=== PATIENT | male | born 1955 | race Caucasian/White ===

== ENCOUNTER 2018-01-28 10:44 | Outpatient (REF) | payer BC, SELFPAY ==
[2018-01-28 21:49] LABS: ALT 27 U/L (12-78); AST 19 U/L (15-37); Albumin 3.8 g/dL (3.4-5.0); Alkaline Phosphatase 81 U/L (46-116); Anion Gap 9.4 mmol/L (3-11); BUN 21 mg/dL (7-18); Bilirubin, Total 0.1 mg/dL (0.2-1.0); CO2 26.6 mmol/L (21.0-32.0); CREATININE 1.16 mg/dL (0.70-1.30); Calcium 9.6 mg/dL (8.5-10.1); Chloride 103 mmol/L (98-107); Glucose 133 mg/dL (70-100); Potassium 5.6 mmol/L (3.5-5.1); Sodium 139 mmol/L (136-145)
[2018-01-28 22:04] LABS: COMMENT (LAB VIEW ONLY) 63.96 mg/dL; Microalb ug/mg Crea 80.4 ug/mg Cr
[2018-01-30 10:47] LABS: Hepatitis C Ab w Rflx HCV PCR Negative (NEGAT)
== END 2018-01-28 11:04 ==
LOC: NCHCN 10:44
PROVIDERS: Visit Provider Nurse Practitioner Family
DX: E11.319 Type 2 diabetes mellitus with unspecified diabetic retinopathy without macular edema (principal); E78.5 Hyperlipidemia, unspecified; I10 Essential (primary) hypertension; F17.200 Nicotine dependence, unspecified, uncomplicated; Z11.59 Encounter for screening for other viral diseases
CPT/HCPCS: 80053; 86803; 82043; 82570

== ENCOUNTER 2018-02-04 08:55 | Outpatient (REF) | payer BC, SELFPAY ==
[2018-02-04 22:02] LABS: Anion Gap 9.4 mmol/L (3-11); BUN 27 mg/dL (7-18); CO2 26.6 mmol/L (21.0-32.0); CREATININE 1.38 mg/dL (0.70-1.30); Calcium 9.5 mg/dL (8.5-10.1); Chloride 103 mmol/L (98-107); Estimated GFR 52.56 (mL/min/1.73m2); Glucose 190 mg/dL (70-100); Potassium 4.6 mmol/L (3.5-5.1); Sodium 139 mmol/L (136-145)
== END 2018-02-04 09:15 ==
LOC: LBN 08:55
PROVIDERS: Nurse Practitioner Family; Visit Provider Family Medicine
DX: I10 Essential (primary) hypertension (principal)
CPT/HCPCS: 80048

== ENCOUNTER 2018-03-11 09:01 | Outpatient (REF) | payer BC, SELFPAY ==
[2018-03-11 22:16] LABS: Anion Gap 8.7 mmol/L (3-11); BUN 23 mg/dL (7-18); CO2 27.3 mmol/L (21.0-32.0); CREATININE 1.46 mg/dL (0.70-1.30); Calcium 9.5 mg/dL (8.5-10.1); Chloride 105 mmol/L (98-107); Cholesterol 136 mg/dL (50-200); Estimated GFR 49.25 (mL/min/1.73m2); Glucose 171 mg/dL (70-100); HDL Cholesterol 40 mg/dL (40-60); LDL CHOLESTEROL 73 mg/dL (<100); Potassium 5.1 mmol/L (3.5-5.1); Sodium 141 mmol/L (136-145); Triglyceride 142 mg/dL (30-150)
== END 2018-03-11 09:21 ==
LOC: NCHCN 09:01
PROVIDERS: Visit Provider Nurse Practitioner Family
DX: I10 Essential (primary) hypertension (principal); E11.319 Type 2 diabetes mellitus with unspecified diabetic retinopathy without macular edema; E78.5 Hyperlipidemia, unspecified
CPT/HCPCS: 80048; 80061; 83721

== ENCOUNTER 2018-04-29 08:34 | Outpatient (REF) | payer BC, SELFPAY ==
[2018-04-29 22:23] LABS: Anion Gap 7.6 mmol/L (3-11); BUN 27 mg/dL (7-18); CO2 28.4 mmol/L (21.0-32.0); CREATININE 1.64 mg/dL (0.70-1.30); Calcium 9.5 mg/dL (8.5-10.1); Chloride 103 mmol/L (98-107); Estimated GFR 43.07 (mL/min/1.73m2); Glucose 197 mg/dL (70-100); Potassium 4.7 mmol/L (3.5-5.1); Sodium 139 mmol/L (136-145); TSH (W/Ref FT4) 1.46 uIU/mL (0.358-3.74)
== END 2018-04-29 08:54 ==
LOC: LBN 08:34
PROVIDERS: Visit Provider Nurse Practitioner Family
DX: R68.89 Other general symptoms and signs (principal); R94.4 Abnormal results of kidney function studies; E11.319 Type 2 diabetes mellitus with unspecified diabetic retinopathy without macular edema; I10 Essential (primary) hypertension
CPT/HCPCS: 80048; 84443

== ENCOUNTER 2018-05-15 08:34 | Outpatient (REF) | payer BC, SELFPAY ==
[2018-05-15 21:27] LABS: BUN 28 mg/dL (7-18); CREATININE 1.47 mg/dL (0.70-1.30); Calcium 9.5 mg/dL (8.5-10.1); Chloride 103 mmol/L (98-107); Estimated GFR 48.86 (mL/min/1.73m2); Glucose 285 mg/dL (70-100); Potassium 5.2 mmol/L (3.5-5.1); Sodium 137 mmol/L (136-145)
== END 2018-05-15 08:54 ==
LOC: NCHCN 08:34
PROVIDERS: PCP Nurse Practitioner Family; Visit Provider Nurse Practitioner Family
DX: R94.4 Abnormal results of kidney function studies (principal)
CPT/HCPCS: 80048

== ENCOUNTER 2019-01-14 08:59 | Outpatient (REF) | payer BC, SELFPAY ==
[2019-01-14 21:18] LABS: COMMENT (LAB VIEW ONLY) 69.26 mg/dL; Microalb ug/mg Crea 53.6 ug/mg Cr
[2019-01-14 21:38] LABS: HCT 38.4 % (40.0-50.0); HGB 12.7 g/dL (13.5-17.5); Mean Corp. HGB Concentration 33.1 g/dL (32.0-36.0); Mean Corpuscular Hemoglobin 32.2 pg (27.0-33.0); Mean Corpuscular Volume 97.5 fL (80-95); Mean Platelet Volume 10.5 fL (8.0-11.0); Platelet Count 303 x1000/uL (130-400); RBC 3.94 m/cumm (4.50-6.00); RBC Distribution Width 12.4 % (11.8-14.1); White Blood Cell Count 9.05 k/cumm (4.4-10.8)
[2019-01-14 22:09] LABS: Vitamin D 25 Total 46.8 ng/ml (30-100)
[2019-01-14 22:32] LABS: ALT 30 U/L (16-63); AST 20 U/L (15-37); Albumin 4.3 g/dL (3.4-5.0); Alkaline Phosphatase 83 U/L (46-116); Anion Gap 9.5 mmol/L (3-11); BUN 21 mg/dL (7-18); Bilirubin, Total 0.4 mg/dL (0.2-1.0); CO2 26.5 mmol/L (21.0-32.0); CREATININE 1.53 mg/dL (0.70-1.30); Calcium 10.2 mg/dL (8.5-10.1); Chloride 104 mmol/L (98-107); Glucose 151 mg/dL (70-100); Sodium 140 mmol/L (136-145); TSH 1.27 uIU/mL (0.36-3.74); Total Protein 7.7 g/dL (6.4-8.2); Vitamin B12 305 pg/mL (193-986)
[2019-01-14 22:38] LABS: Potassium 6.1 mmol/L (3.5-5.1)
== END 2019-01-14 09:19 ==
LOC: NCHCN 08:59
PROVIDERS: PCP Nurse Practitioner Family; Visit Provider Family Medicine
DX: Z00.00 Encounter for general adult medical examination without abnormal findings (principal); E78.5 Hyperlipidemia, unspecified; E11.319 Type 2 diabetes mellitus with unspecified diabetic retinopathy without macular edema; R53.83 Other fatigue; N18.3 Chronic kidney disease, stage 3 (moderate)
CPT/HCPCS: 80053; 82306; 85027; 82043; 82570; 82607; 84443

== ENCOUNTER 2019-01-27 09:23 | Outpatient (REF) | payer BC, SELFPAY ==
[2019-01-27 17:03] LABS: Anion Gap 7.1 mmol/L (3-11); BUN 20 mg/dL (7-18); CO2 28.9 mmol/L (21.0-32.0); CREATININE 1.46 mg/dL (0.70-1.30); Calcium 9.4 mg/dL (8.5-10.1); Chloride 104 mmol/L (98-107); Estimated GFR 49.09 (mL/min/1.73m2); Glucose 155 mg/dL (74-106); Sodium 140 mmol/L (136-145)
== END 2019-01-27 09:43 ==
LOC: NCHCN 09:23
PROVIDERS: PCP Nurse Practitioner Family; Visit Provider Family Medicine
DX: E87.5 Hyperkalemia (principal); I10 Essential (primary) hypertension
CPT/HCPCS: 80048

== ENCOUNTER 2020-01-25 09:26 | Outpatient (REF) | payer OTHER, SELFPAY ==
[2020-01-25 21:50] LABS: HCT 38.3 % (40.0-50.0); HGB 12.9 g/dL (13.5-17.5); MCH 32.1 pg (27.0-33.0); MCHC 33.7 % (32.0-36.0); MCV 95.3 fL (80-95); MPV 9.7 fL (8.0-11.0); Platelet Count 289 10^3/uL (130-400); RBC 4.02 10^6/uL (4.36-5.78); RDW 11.9 % (11.8-14.1); RDW-SD 41.3 fL; WBC 6.92 10^3/uL (4.4-10.8)
[2020-01-25 22:44] LABS: ALT 21 U/L (16-63); AST 16 U/L (15-37); Alkaline Phosphatase 80 U/L (46-116); Anion Gap 6.4 mmol/L (3-11); BUN 21 mg/dL (7-18); Bilirubin, Total 0.4 mg/dL (0.2-1.0); CO2 26.6 mmol/L (21.0-32.0); CREATININE 1.48 mg/dL (0.70-1.30); Calcium 9.2 mg/dL (8.5-10.1); Chloride 102 mmol/L (98-107); Estimated GFR 48.16 (mL/min/1.73m2); Glucose 191 mg/dL (74-106); Potassium 4.6 mmol/L (3.5-5.1); Sodium 135 mmol/L (136-145); Total Protein 7.1 g/dL (6.4-8.2)
== END 2020-01-25 09:46 ==
LOC: NCHCN 09:26
PROVIDERS: PCP Nurse Practitioner Family; Visit Provider Nurse Practitioner Family
DX: Z00.00 Encounter for general adult medical examination without abnormal findings (principal); N18.30 Chronic kidney disease, stage 3 unspecified; E11.319 Type 2 diabetes mellitus with unspecified diabetic retinopathy without macular edema
CPT/HCPCS: 80053; 85027

== ENCOUNTER 2020-04-24 14:28 | Outpatient (REF) | payer OTHER, SELFPAY ==
[2020-04-24 13:19] LABS: Abs Immature Grans 0.04 10^3/uL (0.0-0.06); Absolute Basophil Count 0.04 10^3/uL (0.0-0.2); Absolute Eosinophil Count 0.18 10^3/uL (0.0-0.7); Absolute Lymphocyte Count 2.04 10^3/uL (1.2-3.4); Absolute Monocyte Count 0.81 10^3/uL (0.1-0.8); Absolute Neutrophil Count 8.88 10^3/uL (1.2-6.7); Basophils % 0.3; Eosinophils % 1.5; HCT 36.7 % (40.0-50.0); HGB 12.6 g/dL (13.5-17.5); Immature Grans % 0.3; MCH 32.6 pg (27.0-33.0); MCHC 34.3 % (32.0-36.0); MCV 94.8 fL (80-95); MPV 10.2 fL (8.0-11.0); Monocytes % 6.8; Neutrophils % 74.1; Nucleated RBC 0 %; Platelet Count 276 10^3/uL (130-400); RBC 3.87 10^6/uL (4.36-5.78); RDW 11.9 % (11.8-14.1); RDW-SD 41.5 fL; WBC 11.98 10^3/uL (4.4-10.8)
[2020-04-24 13:58] LABS: ALT 21 U/L (16-63); AST 17 U/L (15-37); Albumin 3.9 g/dL (3.4-5.0); Alkaline Phosphatase 91 U/L (46-116); Anion Gap 11.7 mmol/L (3-11); BUN 28 mg/dL (7-18); Bilirubin, Total 0.3 mg/dL (0.2-1.0); CO2 24.3 mmol/L (21.0-32.0); CREATININE 1.5 mg/dL (0.70-1.30); Calcium 9.5 mg/dL (8.5-10.1); Calculated LDL 63 mg/dL (<100); Chloride 101 mmol/L (98-107); Cholesterol 122 mg/dL (<200); Estimated GFR 47.42 (mL/min/1.73m2); Glucose 233 mg/dL (74-106); HDL Cholesterol 47 mg/dL (40-60); Potassium 5.2 mmol/L (3.5-5.1); Sodium 137 mmol/L (136-145); Total Protein 7.2 g/dL (6.4-8.2); Triglyceride 60 mg/dL (<150)
[2020-04-24 14:05] LABS: COMMENT (LAB VIEW ONLY) 73.45 mg/dL; Microalb ug/mg Crea 18.1 ug/mg Cr
== END 2020-04-24 14:29 | disposition home or self-care (01) ==
LOC: NCHCN 14:28
PROVIDERS: PCP Nurse Practitioner Family; Visit Provider Nurse Practitioner Family
DX: E11.319 Type 2 diabetes mellitus with unspecified diabetic retinopathy without macular edema (principal); R53.83 Other fatigue
CPT/HCPCS: 80053; 80061; 82043; 82570; 85025

== ENCOUNTER 2020-06-07 08:03 | Outpatient (REF) | payer OTHER, SELFPAY ==
[2020-06-07 13:54] LABS: Abs Immature Grans 0.02 10^3/uL (0.0-0.06); Absolute Basophil Count 0.04 10^3/uL (0.0-0.2); Absolute Neutrophil Count 3.65 10^3/uL (1.2-6.7); Basophils % 0.6; Eosinophils % 3.2; HCT 34.2 % (40.0-50.0); HGB 11.2 g/dL (13.5-17.5); Immature Grans % 0.3; MCH 31.7 pg (27.0-33.0); MCHC 32.7 % (32.0-36.0); MCV 96.9 fL (80-95); MPV 9.9 fL (8.0-11.0); Monocytes % 8.1; Neutrophils % 58.8; Nucleated RBC 0 %; Platelet Count 270 10^3/uL (130-400); RBC 3.53 10^6/uL (4.36-5.78); RDW 12.1 % (11.8-14.1); RDW-SD 43.7 fL; WBC 6.21 10^3/uL (4.4-10.8)
[2020-06-07 14:44] LABS: Anion Gap 10.5 mmol/L (3-11); BUN 20 mg/dL (7-18); CO2 26.5 mmol/L (21.0-32.0); CREATININE 1.4 mg/dL (0.70-1.30); Calcium 8.7 mg/dL (8.5-10.1); Chloride 103 mmol/L (98-107); Estimated GFR 51.35 (mL/min/1.73m2); Ferritin 87 ng/mL (26-388); Folate 13.2 ng/mL (8.6-20.0); Glucose 230 mg/dL (74-106); Potassium 4.5 mmol/L (3.5-5.1); Sodium 140 mmol/L (136-145); Vitamin B12 259 pg/mL (193-986)
== END 2020-06-07 08:04 | disposition home or self-care (01) ==
LOC: NCHCN 08:03
PROVIDERS: PCP Nurse Practitioner Family; Visit Provider Nurse Practitioner Family
DX: D64.9 Anemia, unspecified (principal); E87.5 Hyperkalemia; N18.30 Chronic kidney disease, stage 3 unspecified
CPT/HCPCS: 80048; 82607; 82728; 82746; 85025

== ENCOUNTER 2021-01-22 09:02 | Outpatient (REF) | payer OTHER, SELFPAY ==
[2021-01-22 15:52] LABS: MCH 32.3 pg (27.0-33.0); MCHC 33.3 % (32.0-36.0); MCV 96.8 fL (80-95); MPV 10.2 fL (8.0-11.0); Platelet Count 254 10^3/uL (130-400); RBC 3.72 10^6/uL (4.36-5.78); RDW 12.3 % (11.8-14.1); WBC 9.54 10^3/uL (4.4-10.8)
[2021-01-22 16:30] LABS: Anion Gap 9.9 mmol/L (3-11); BUN 23 mg/dL (7-18); CO2 25.1 mmol/L (21.0-32.0); CREATININE 1.5 mg/dL (0.70-1.30); Calcium 8.9 mg/dL (8.5-10.1); Chloride 102 mmol/L (98-107); Estimated GFR 47.27 (mL/min/1.73m2); Glucose 195 mg/dL (74-106); Potassium 4.8 mmol/L (3.5-5.1); Sodium 137 mmol/L (136-145); Vitamin B12 277 pg/mL (193-986)
== END 2021-01-22 09:03 | disposition home or self-care (01) ==
LOC: NCHCN 09:02
PROVIDERS: PCP Nurse Practitioner Family; Visit Provider Nurse Practitioner Family
DX: E11.319 Type 2 diabetes mellitus with unspecified diabetic retinopathy without macular edema (principal); I10 Essential (primary) hypertension; N18.30 Chronic kidney disease, stage 3 unspecified; D64.9 Anemia, unspecified
CPT/HCPCS: 80048; 85027; 82607

== ENCOUNTER 2021-05-02 18:20 | Outpatient (REF) | payer OTHER, SELFPAY ==
[2021-05-02 18:13] LABS: HCT 39.6 % (40.0-50.0); MCH 31.9 pg (27.0-33.0); MCHC 32.8 % (32.0-36.0); MCV 97.3 fL (80-95); MPV 10.3 fL (8.0-11.0); Platelet Count 292 10^3/uL (130-400); RBC 4.07 10^6/uL (4.36-5.78); RDW 12.4 % (11.8-14.1); RDW-SD 44.6 fL; WBC 10.06 10^3/uL (4.4-10.8)
[2021-05-02 18:56] LABS: COMMENT (LAB VIEW ONLY) 58.35 mg/dL; Microalb ug/mg Crea 21.8 ug/mg Cr
== END 2021-05-02 18:21 | disposition home or self-care (01) ==
LOC: NCHCN 18:20
PROVIDERS: PCP Nurse Practitioner Family; Visit Provider Registered Nurse
DX: E11.319 Type 2 diabetes mellitus with unspecified diabetic retinopathy without macular edema (principal); I10 Essential (primary) hypertension; D64.9 Anemia, unspecified
CPT/HCPCS: 85027; 82043; 82570

== ENCOUNTER 2021-08-10 15:12 | Outpatient (REF) | payer SELFPAY ==
[2021-08-10 14:27] LABS: Abs Immature Grans 0.02 10^3/uL (0.0-0.06); Absolute Basophil Count 0.06 10^3/uL (0.0-0.2); Absolute Eosinophil Count 0.39 10^3/uL (0.0-0.7); Absolute Lymphocyte Count 2.39 10^3/uL (1.2-3.4); Absolute Neutrophil Count 7.27 10^3/uL (1.2-6.7); Basophils % 0.6; Eosinophils % 3.6; HCT 41.7 % (40.0-50.0); Immature Grans % 0.2; Lymphocytes % 22.3; MCH 32.4 pg (27.0-33.0); MCHC 33.6 % (32.0-36.0); MCV 97 fL (80-95); MPV 10.3 fL (8.0-11.0); Monocytes % 5.6; Neutrophils % 67.7; Platelet Count 252 10^3/uL (130-400); RBC 4.32 10^6/uL (4.36-5.78); RDW-SD 43.1 fL; WBC 10.73 10^3/uL (4.4-10.8)
[2021-08-10 16:48] LABS: Anion Gap 9.7 mmol/L (3-11); BUN 21 mg/dL (7-18); CO2 25.3 mmol/L (21.0-32.0); CREATININE 1.5 mg/dL (0.70-1.30); Calcium 9.1 mg/dL (8.5-10.1); Chloride 103 mmol/L (98-107); Estimated GFR 47.27 (mL/min/1.73m2); Glucose 199 mg/dL (74-106); Potassium 4.8 mmol/L (3.5-5.1); Sodium 138 mmol/L (136-145); Vitamin B12 508 pg/mL (193-986)
== END 2021-08-10 15:13 | disposition home or self-care (01) ==
LOC: NCHCN 15:12
PROVIDERS: PCP Nurse Practitioner Family; Visit Provider Registered Nurse
DX: D64.9 Anemia, unspecified (principal); N18.30 Chronic kidney disease, stage 3 unspecified
CPT/HCPCS: 80048; 82607; 85025

== ENCOUNTER 2022-01-28 17:30 | Outpatient (REF) | payer MEDICAID, SELFPAY ==
[2022-01-28 18:34] LABS: HCT 37.5 % (40.0-50.0); HGB 12.3 g/dL (13.5-17.5); MCH 31.9 pg (27.0-33.0); MCHC 32.8 % (32.0-36.0); MCV 97 fL (80-95); MPV 10.3 fL (8.0-11.0); Platelet Count 213 10^3/uL (130-400); RBC 3.86 10^6/uL (4.36-5.78); RDW 12.1 % (11.8-14.1); RDW-SD 43.7 fL; WBC 3.99 10^3/uL (4.4-10.8)
[2022-01-28 19:25] LABS: ALT 26 U/L (16-63); AST 25 U/L (15-37); Albumin 3.7 g/dL (3.4-5.0); Alkaline Phosphatase 99 U/L (46-116); Anion Gap 9.7 mmol/L (3-11); BUN 25 mg/dL (7-18); Bilirubin, Total 0.2 mg/dL (0.2-1.0); CO2 27.3 mmol/L (21.0-32.0); CREATININE 1.7 mg/dL (0.70-1.30); Calcium 8.9 mg/dL (8.5-10.1); Calculated LDL 47 mg/dL (<100); Chloride 99 mmol/L (98-107); Cholesterol 114 mg/dL (<200); Estimated GFR 44.46 (mL/min/1.73m2); Glucose 80 mg/dL (74-106); HDL Cholesterol 42 mg/dL (40-60); Potassium 3.6 mmol/L (3.5-5.1); Sodium 136 mmol/L (136-145); TSH (W/Ref FT4) 0.63 uIU/mL (0.36-3.74); Total Protein 7.4 g/dL (6.4-8.2); Triglyceride 127 mg/dL (<150); Vitamin B12 558 pg/mL (193-986)
[2022-01-29 17:57] LABS: PSA, Screening 0.2 ng/mL (<=4.5)
== END 2022-01-28 17:31 | disposition home or self-care (01) ==
LOC: NCHCN 17:30
PROVIDERS: PCP Nurse Practitioner Family; Visit Provider Nurse Practitioner Family
DX: E11.319 Type 2 diabetes mellitus with unspecified diabetic retinopathy without macular edema (principal); Z12.5 Encounter for screening for malignant neoplasm of prostate; Z00.00 Encounter for general adult medical examination without abnormal findings
CPT/HCPCS: 80053; 80061; 84153; 85027; 82607; 84443

== ENCOUNTER 2022-02-07 14:44 | Outpatient (REF) | payer MEDICAID, SELFPAY ==
[2022-02-07 20:59] LABS: Reticulocyte 0.9 % (0.5-2.4)
[2022-02-07 22:03] LABS: Ferritin 237 ng/mL (26-388)
[2022-02-07 22:51] LABS: Iron 43 ug/dL (65-175); Total Iron Binding Capacity 219 ug/dL (250-450); Transferrin Sat 20 % (20-55)
== END 2022-02-07 14:45 | disposition home or self-care (01) ==
LOC: NCHCN 14:44
PROVIDERS: PCP Nurse Practitioner Family; Visit Provider Nurse Practitioner Family
DX: D64.9 Anemia, unspecified (principal)
CPT/HCPCS: 82728; 82746; 83540; 83550; 85045

== ENCOUNTER 2022-04-23 13:15 | Outpatient (REF) | payer MEDICAID, SELFPAY ==
[2022-04-23 21:39] LABS: HCT 38.2 % (40.0-50.0); HGB 12.8 g/dL (13.5-17.5); MCHC 33.5 % (32.0-36.0); MCV 96 fL (80-95); MPV 10.2 fL (8.0-11.0); Platelet Count 278 10^3/uL (130-400); RDW 12.4 % (11.8-14.1); RDW-SD 43.8 fL; WBC 8.53 10^3/uL (4.4-10.8)
[2022-04-23 21:46] LABS: Iron 97 ug/dL (65-175); Total Iron Binding Capacity 261 ug/dL (250-450); Transferrin Sat 37 % (20-55)
[2022-04-23 22:10] LABS: Ferritin 105 ng/mL (26-388)
[2022-04-23 22:11] LABS: Folate > 20.0 ng/mL (8.6-20.0)
== END 2022-04-23 13:16 | disposition home or self-care (01) ==
LOC: NCHCN 13:15
PROVIDERS: PCP Nurse Practitioner Family; Visit Provider Nurse Practitioner Family
DX: D64.9 Anemia, unspecified (principal)
CPT/HCPCS: 85027; 82728; 82746; 83540; 83550

== ENCOUNTER 2022-12-16 17:02 | Outpatient (REF) | payer MEDICAID, SELFPAY ==
[2022-12-16 17:53] LABS: Anion Gap 7.6 mmol/L (3-11); BUN 24 mg/dL (7-18); CO2 25.4 mmol/L (21.0-32.0); CREATININE 1.5 mg/dL (0.70-1.30); Calcium 9.6 mg/dL (8.5-10.1); Chloride 102 mmol/L (98-107); Estimated GFR 51.67 (mL/min/1.73m2); Glucose 210 mg/dL (74-106); Potassium 4.6 mmol/L (3.5-5.1); Sodium 135 mmol/L (136-145)
[2022-12-16 17:56] LABS: HCT 37.2 % (40.0-50.0); HGB 12.5 g/dL (13.5-17.5); MCH 32.7 pg (27.0-33.0); MCHC 33.6 % (32.0-36.0); MCV 97 fL (80-95); MPV 9.6 fL (8.0-11.0); Platelet Count 299 10^3/uL (130-400); RBC 3.82 10^6/uL (4.36-5.78); RDW 12.3 % (11.8-14.1); RDW-SD 44.1 fL; WBC 11.15 10^3/uL (4.4-10.8)
[2022-12-16 18:18] LABS: COMMENT (LAB VIEW ONLY) 60.08 mg/dL
== END 2022-12-16 17:03 | disposition home or self-care (01) ==
LOC: NCHCN 17:02
PROVIDERS: PCP Nurse Practitioner Family; Visit Provider Registered Nurse
DX: D64.9 Anemia, unspecified (principal); R53.83 Other fatigue; I10 Essential (primary) hypertension
CPT/HCPCS: 80048; 85027; 82043; 82570

== ENCOUNTER 2023-08-13 15:39 | Outpatient (REF) | payer MEDICARE, MEDICAID, SELFPAY ==
[2023-08-13 21:55] LABS: HCT 37.8 % (40.0-50.0); HGB 12.6 g/dL (13.5-17.5); MCH 32.2 pg (27.0-33.0); MCHC 33.3 % (32.0-36.0); MCV 97 fL (80-95); MPV 10.1 fL (8.0-11.0); Platelet Count 239 10^3/uL (130-400); RBC 3.91 10^6/uL (4.36-5.78); RDW 11.9 % (11.8-14.1); RDW-SD 42.3 fL; WBC 8.27 10^3/uL (4.4-10.8)
[2023-08-13 22:33] LABS: ALT 21 U/L (16-63); AST 16 U/L (15-37); Albumin 3.6 g/dL (3.4-5.0); Alkaline Phosphatase 93 U/L (46-116); Anion Gap 9.1 mmol/L (3-11); BUN 17 mg/dL (7-18); Bilirubin, Total 0.2 mg/dL (0.2-1.0); CO2 27.9 mmol/L (21.0-32.0); CREATININE 1.4 mg/dL (0.70-1.30); Calcium 9.5 mg/dL (8.5-10.1); Calculated LDL 57 mg/dL (<100); Chloride 103 mmol/L (98-107); Cholesterol 124 mg/dL (<200); Estimated GFR 55.78 (mL/min/1.73m2); Ferritin 197 ng/mL (26-388); Glucose 83 mg/dL (74-106); HDL Cholesterol 42 mg/dL (40-60); Potassium 4.3 mmol/L (3.5-5.1); Sodium 140 mmol/L (136-145); Total Protein 7.4 g/dL (6.4-8.2); Triglyceride 127 mg/dL (<150)
== END 2023-08-13 15:40 | disposition home or self-care (01) ==
LOC: NCHCN 15:39
PROVIDERS: PCP Nurse Practitioner Family; Visit Provider Nurse Practitioner Family
DX: E11.21 Type 2 diabetes mellitus with diabetic nephropathy (principal)
CPT/HCPCS: 80053; 80061; 85027; 82728

== ENCOUNTER 2023-11-17 19:09 | Outpatient (REF) | payer MEDICARE, MEDICAID, SELFPAY ==
[2023-11-17 21:53] LABS: COMMENT (LAB VIEW ONLY) 193.95 mg/dL; Microalb ug/mg Crea 9.8 ug/mg Cr
== END 2023-11-17 19:10 | disposition home or self-care (01) ==
LOC: NCHCN 19:09
PROVIDERS: PCP Nurse Practitioner Family; Visit Provider Nurse Practitioner Family
DX: E11.21 Type 2 diabetes mellitus with diabetic nephropathy (principal)
CPT/HCPCS: 82043; 82570

== ENCOUNTER 2024-11-24 07:23 | Outpatient (REF) | payer MEDICARE, MEDICAID, SELFPAY ==
[2024-11-24 14:46] LABS: HCT 42.8 % (40.0-50.0); HGB 14.7 g/dL (13.5-17.5); MCH 33.3 pg (27.0-33.0); MCHC 34.3 % (32.0-36.0); MCV 97 fL (80-95); MPV 9.8 fL (8.0-11.0); Platelet Count 277 10^3/uL (130-400); RBC 4.41 10^6/uL (4.36-5.78); RDW 12.5 % (11.8-14.1); RDW-SD 44.7 fL; WBC 10.17 10^3/uL (4.4-10.8)
[2024-11-24 15:17] LABS: Hemoglobin A1C 7.8 % (<5.7)
[2024-11-24 15:49] LABS: ALT 28 U/L (16-63); AST 20 U/L (15-37); Albumin 3.7 g/dL (3.4-5.0); Alkaline Phosphatase 109 U/L (46-116); Anion Gap 9.5 mmol/L (3-11); BUN 25 mg/dL (7-18); Bilirubin, Total 0.3 mg/dL (0.2-1.0); CO2 26.5 mmol/L (21.0-32.0); Calcium 9.6 mg/dL (8.5-10.1); Calculated LDL 70 mg/dL (<100); Chloride 103 mmol/L (98-107); Cholesterol 148 mg/dL (<200); Estimated GFR 43.91 (mL/min/1.73m2); Ferritin 363 ng/mL (26-388); Glucose 202 mg/dL (74-106); HDL Cholesterol 42 mg/dL (>or=40); Potassium 4.8 mmol/L (3.5-5.1); Sodium 139 mmol/L (136-145); Total Protein 7.4 g/dL (6.4-8.2); Triglyceride 183 mg/dL (<150); Vitamin B12 295 pg/mL (193-986)
[2024-11-24 15:53] LABS: Folate > 20.0 ng/mL (8.6-20.0)
== END 2024-11-24 07:24 | disposition home or self-care (01) ==
LOC: NCHCN 07:23
PROVIDERS: PCP Nurse Practitioner Family; Visit Provider Nurse Practitioner Family
DX: E11.21 Type 2 diabetes mellitus with diabetic nephropathy (principal); D64.9 Anemia, unspecified
CPT/HCPCS: 80053; 80061; 85027; 82607; 82728; 82746; 83036

== ENCOUNTER 2024-11-30 16:32 | Outpatient (REF) | payer MEDICARE, MEDICAID, SELFPAY ==
[2024-11-30 21:35] LABS: COMMENT (LAB VIEW ONLY) 58.23 mg/dL; Microalb ug/mg Crea 9.8 ug/mg Cr
== END 2024-11-30 16:33 | disposition home or self-care (01) ==
LOC: NCHCN 16:32
PROVIDERS: PCP Nurse Practitioner Family; Visit Provider Nurse Practitioner Family
DX: E11.21 Type 2 diabetes mellitus with diabetic nephropathy (principal)
CPT/HCPCS: 82043; 82570